=== PATIENT | female | born 1955 | race Caucasian/White ===

== ENCOUNTER 2016-07-25 09:17 | Day surgery (SDC) | payer OTHER ==
[~2016-07-25 09:17] MED LIST: ASPI81TA2 PO; BENZ100C2 PO; CALC-47 PO; CETI10TA16 PO; CHOL10002 PO; CRESTOR20 MG PO; CRESTOR40 MG PO; FENTANYL PF 100 MCG/2 ML VIAL. IV PRN; FLUT12AE IH; FLUT9.9S NS; HYDROMORPHONE 2 MG/ML VIAL. IV PRN; IV RINGERS,LACTATED 1000ML 1,000 ML IV SCH; LIDOCAINE 1% 1 ML SYRINGE. ID PRN; LISI-334 PO; MELO-150 PO; MONT10TA9 PO; MORPHINE SULFATE 2 MG/ML DISP.SYRIN. IV PRN; NITR100C PO; OMEP20CA9 PO; ONDANSETRON PF 4 MG/2 ML VIAL. IV PRN; POTA10TA12 PO; PROCHLORPERAZINE 10 MG/2 ML VIAL. IV PRN; SALM50DI IH; SPIR25TA3 PO
[2016-07-25 10:12] LABS: BASO # 0.1 x10^3/uL (0.0-0.2); BASO % 1 % (0-3); EOS % 3 % (0-3); HEMATOCRIT 36.3 % (36.0-47.0); HEMOGLOBIN 12.5 g/dL (12.0-15.5); LYMPH # 1.8 x10^3/uL (1.0-4.8); LYMPH % 26 % (24-48); MEAN CORPUSCULAR HEMOGLOBIN 30 pg (25-35); MEAN CORPUSCULAR HGB CONC 35 g/dL (31-37); MEAN CORPUSCULAR VOLUME 87 fL (79-100); MONO % 7 % (0-9); NEUT % 63 % (31-73); PLATELET COUNT 163 x10^3/uL (140-400); RED BLOOD COUNT 4.19 x10^6/uL (3.50-5.40); RED CELL DISTRIBUTION WIDTH 14.1 % (11.5-14.5)
[2016-07-25 10:28] LABS: CALCIUM 8.9 mg/dL (8.5-10.1); CREATININE 0.7 mg/dL (0.6-1.0); GFR 84.8; POTASSIUM 3.9 mmol/L (3.5-5.1)
[2016-07-25] MEDS ORDERED: LIDOCAINE 1% 20 ML VIAL. ONE (11:48)
[2016-07-25] MEDS ORDERED: BUPIVACAINE MPF 0.5% 30 ML VIAL. ONE (11:48)
[2016-07-25] MEDS ORDERED: PROPOFOL 20 ML IV ONE (11:57)
[2016-07-25] MEDS ORDERED: LIDOCAINE 2% 100 MG/5 ML DISP.SYRIN. ONE ×3 (11:57→12:30)
[2016-07-25] MEDS ORDERED: VANCOMYCIN 1GM IVPB FOR OMNI. ONE (12:00)
[2016-07-25] MEDS ORDERED: POVIDONE-IODINE 10% TOPICAL OINTMENT 28GM TUBE. TP ONE (12:30)
--- NOTE | 2016-07-25 12:56 | PDOC4 ---
PROCEDURE Procedure Surgeon: Myrna Pre op DX: Osteophyte left hallux distal phalanx Post op DX: same Procedure: Excision of osteophyte left hallux distal phalanx Anesthesia: MAC with local Hemostasis: left ankle tourniquet at 250mmHg EBL: 0mL Materials: 3-0 vicryl, 4-0 nylon Implants: none Specimen: osteophyte distal phalanx left hallux Intraoperative findings: Note aristides protuberence of osteophyte medial aspect of distal phalanx base left hallux with adventitial ganglion 0.3x0.3cm Patient tolerated procedure and anesthesia well. Transferred to PACU with VSS and VSI. Dictation # [id number] JUSTINE GODOY DPM Jul 25, 2016 12:56
--- NOTE | 2016-07-25 13:36 | OP ---
DATE OF SURGERY: 07/25/2016 PREOPERATIVE DIAGNOSIS: Osteophyte, left hallux, distal phalanx. POSTOPERATIVE DIAGNOSIS: Osteophyte, left hallux, distal phalanx. PROCEDURE: Excision of osteophyte, left hallux, distal phalanx. SURGEON: Erwin Norris DPM ANESTHESIA: MAC with local. HEMOSTASIS: Left ankle tourniquet at 250 mmHg. INDICATIONS: The patient is a 60-year-old female who underwent a bunion surgery several years prior by a different surgeon. The patient relates to iatrogenic hallux varus deformity after surgery and due to the alignment of her first ray, she has pain at the distal phalanx base in shoe gear. The patient has failed conservative treatment of wide extra depth shoe gear, accommodative padding, ice and NSAIDs. Radiographs do note osteophyte formation to the medial distal phalanx base of the left hallux. Discussed with patient alternate treatment options to include continued conservative treatment with offload padding and wider shoe gear versus surgical correction of the hallux varus deformity with arthrodesis of the first metatarsophalangeal joint versus an implant of the first metatarsophalangeal joint. The patient had wished to proceed with less invasive procedure of the excision of the osteophyte of the left hallux where she directly feels the pain. Discussed with the patient possible risks, benefits, and complications. Complications include delayed or nonhealing, infection, need for further surgery, recurrence of hypertrophic bone, continued pain, numbness, tingling, burning, floppy toe, flail toe, loss of toe purchase, need for further surgery, blood clot to the leg, blood clot to the lung, chronic regional pain syndrome, hematoma, recurrence. All questions were answered. The patient signed consent freely and put in chart. DESCRIPTION OF PROCEDURE: The patient was transported to the operating room via a cart and placed on the operating room table in supine position. Final verification of the surgery, patient and limb to be performed was confirmed and IV sedation was administered per Anesthesia and a hallux block was administered to the left hallux consisting of a 1:1 mixture of 1% lidocaine plain and 0.5% Marcaine plain, 6 mL total. A well padded tourniquet was placed over the left ankle. The left foot was then prepped and draped in the usual aseptic manner. Esmarch bandage was used to exsanguinate the left foot and the left ankle tourniquet was inflated to 250 mmHg. Attention was directed to the distal phalanx, medial dorsal aspect of the left phalanx and made a 2-cm incision over a palpable bony protuberance. The small vessels were reflected from the surgical site and a linear incision was made over the osteophyte, which was palpable to the medial distal phalanx base. A rongeur was used to resect the osteophyte and this was sent to Pathology for further evaluation. Next, used a round bur to smooth any additional sharp edges along the dorsal phalanx base. Also noted synovial fluid from most likely an adventitious bursa, which probably from the constant irritation over this osteophyte. This was resected out and again bone rasp was used to smooth any sharp edges. The wound was then copiously irrigated with sterile saline. No longer felt a palpable bony protuberance at the previous site and the wound was copiously irrigated with sterile saline and the skin was reapproximated with 3-0 Vicryl and 4-0 nylon. A postop dressing was applied with Betadine ointment, Adaptic gauze, 4 x 4, Kerlix bandage and an Yeison bandage. The tourniquet was deflated and good perfusion was noted to all digits of the left foot. The patient tolerated both anesthesia and procedure well and was transported to the PACU in stable condition with vital signs stable and vascular status intact to the left foot. Postop instructions are in the chart. She is to have x-rays taken in the PACU. ERWIN NORRIS DPM DR: Samreen JOB#: [id number] / [id number]
[2016-07-25] MEDS ORDERED: TRAMADOL 50 MG TABLET. PO ONE (13:45)
[2016-07-25] MEDS ORDERED: TRAM50TA PO (13:50)
[2016-07-25] MEDS ORDERED: ACET325T9 PO (13:52)
[2016-07-25 14:12] VITALS: BP 144/40
--- NOTE | 2016-07-25 15:27 | RAD ---
Left foot radiographs History: Postoperative surgery of the great toe. Comparison: None. Findings: AP, lateral, and oblique views of the left foot. First metatarsal demonstrates postoperative changes of realignment osteotomy. There is mild varus deviation of the first proximal phalanx at the MTP joint. Soft tissue gas and bandage can be seen involving the first digit (great toe). Postoperative changes of the lateral fifth metatarsal head resection are seen. Post surgical changes are also seen in the distal aspect of the fifth proximal phalanx. Small plantar calcaneal enthesophyte is present. Impression: Postsurgical changes as above.
--- NOTE | 2016-07-27 14:25 | PATHOLOGY ---
PATHOLOGY REPORT * * * * * * * * FINAL DIAGNOSIS: Segments of bone, cartilage, and fibrous tissue, left foot hallux: - Consistent with osteophyte. (JPM:mgclementina; d/t: 07/27/16) REPORT ELECTRONICALLY SIGNED BY: Bill Pereyra M.D. DATE/TIME: 07/27/2016 14:24 * * * * * * * * GROSS PATHOLOGY: The specimen is received in formalin labeled "katie Booker left foot hallux". Received are multiple segments of light burr bone measuring 1.5 x 0.7 x 0.3 cm in aggregate dimensions. The specimen is submitted entirely in cassette A1, following decalcification. (CAA; 07/26/2016) INITIAL CPT CODE(S): A; 85668, 14497 Professional services performed [place] [facility] [place] [address] Technical services performed by [facility] at [address] [place] [address], [facility] [address] [address]. Jameson Abarca DO, [facility], [address] [place] [address] phone: [phone] fax: [phone] SPECIMEN(S) RECEIVED: A.Bone left foot CLINICAL HISTORY: Osteophytes left foot PATIENT: JULIA ARTHUR DOB/AGE: 511/22/1955 (Age: 60) PATIENT #: [id number] ALT CASE #: SPECIMEN COLLECTION DATE: 07/25/2016 SPECIMEN RECEIVED DATE: 07/25/2016 [facility] - [address] [place] [address] - PHONE: [phone] * * * END OF REPORT * * *
== END 2016-07-25 14:32 | disposition home or self-care (01) ==
LOC: SURG 09:17
PROVIDERS: ATTEND Podiatrist Foot & Ankle Surgery
DX: M25.775 Osteophyte, left foot (principal); E78.00 Pure hypercholesterolemia, unspecified; I10 Essential (primary) hypertension; J44.9 Chronic obstructive pulmonary disease, unspecified; J45.909 Unspecified asthma, uncomplicated; Z90.49 Acquired absence of other specified parts of digestive tract; Z90.710 Acquired absence of both cervix and uterus; E66.9 Obesity, unspecified; N39.0 Urinary tract infection, site not specified; M19.90 Unspecified osteoarthritis, unspecified site; F10.99 Alcohol use, unspecified with unspecified alcohol-induced disorder
CPT/HCPCS: 28108; 36415; 73630; 80048; 85027; C1769; J2704; J3370; J3490

== ENCOUNTER → 2021-04-14 | Outpatient (CLI) | payer MEDICARE, OTHER ==
[~2021-04-14] MED LIST changes: +ACET325T9 PO; +ASPI-630 PO; -ASPI81TA2 PO; +BENZ-8 PO; -BENZ100C2 PO; +CALC-157 PO; -CALC-47 PO; -FENTANYL PF 100 MCG/2 ML VIAL. IV PRN; +GADOTERATE 7.5 MMOL/15ML VIAL. IVP ONE; -HYDROMORPHONE 2 MG/ML VIAL. IV PRN; -IV RINGERS,LACTATED 1000ML 1,000 ML IV SCH; -LIDOCAINE 1% 1 ML SYRINGE. ID PRN; -LISI-334 PO; +LISI20TA18 PO; -MELO-150 PO; +MELO15TA23 PO; +MONT10TA49 PO; -MONT10TA9 PO; -MORPHINE SULFATE 2 MG/ML DISP.SYRIN. IV PRN; +OMEP20CA16 PO; -OMEP20CA9 PO; -ONDANSETRON PF 4 MG/2 ML VIAL. IV PRN; +POTA-116 PO; -POTA10TA12 PO; -PROCHLORPERAZINE 10 MG/2 ML VIAL. IV PRN; -SALM50DI IH; +SALM50DI2 IH; -SPIR25TA3 PO; +SPIR25TA5 PO; +TRAM50TA PO
--- NOTE | 2021-04-14 11:40 | KCIC ---
MRI of the Brain/IACs without and with contrast 04/14/2021 Clinical History: Asymmetrical hearing loss, right greater than left for 2 years. Technique: Unenhanced T1-weighted sagittal and axial and FLAIR, T2-weighted, gradient echo and diffus ion-weighted axial images of the brain were obtained. Thin section T1-weighted axial and T2 weighted coronal and axial images through the IACs were obtained. After the intravenous administration of 20 c c of Clariscan, enhanced T1-weighted axial and coronal images of the brain were obtained. Additionall y enhanced thin section T1-weighted axial and coronal images through the IACs were obtained. Findings:No previous imaging studies are available for comparison. Some images are degraded by patient motion. There is generalized parenchymal atrophy. Patchy and several small scattered areas of increased signa l intensity are seen within the periventricular and subcortical white matter posterolateral hemispher es on the FLAIR and T2-weighted images consistent with areas of relatively mild small vessel ischemic disease. No acute parenchymal abnormality is seen. No extra-axial fluid collection is seen. There is no MRI evidence of acute ischemia/infarction. No abnormal area parenchymal contrast enhancement is s een. MRI images through the IACs are within normal limits. No abnormal soft tissue mass or area of abnorma l contrast enhancement is seen. Mild to moderate mucosal thickening is seen throughout the paranasal sinuses. Small fluid levels are seen involving both maxillary sinuses. There are minimal bilateral mastoid effusions. Normal flow voi ds are seen within the major vascular structures surrounding the brain parenchyma. Normal flow voids are seen within the major vascular structures surrounding the brain parenchyma. Impression: 1. No acute parenchymal abnormality is seen. 2. Negative MRI of the IACs. Electronically signed by: Baldemar Rodriguez MD (04/14/2021 11:37 AM) [id number]
== END ==
LOC: KCIC MRI 07:51
PROVIDERS: ATTEND Otolaryngology
DX: H91.8X9 Other specified hearing loss, unspecified ear (principal)
CPT/HCPCS: 70553; 82565; A9575